=== PATIENT | female | born 1940 | race Caucasian/White ===

== ENCOUNTER 2017-04-21 05:47 | Observation (INO) | payer OTHER ==
[~2017-04-21] VITALS: Ht 167.6 cm; Wt 80.4 kg
[2017-04-21] VITALS (10 sets, daily range): BP systolic 140–165; BP diastolic 63–82; PULSE 53–69; RESP 18–20; TEMP 96.9–98.6; O2SAT 94–100
[~2017-04-21 05:47] MED LIST: LORTA5 PO; [UNRECOGNIZED DRUG - REMARK]
[2017-04-21] MEDS ORDERED: CLON0.1T PO (06:15)
[2017-04-21] MEDS ORDERED: AMLO2.5T PO (06:15)
[2017-04-21] MEDS ORDERED: BENA40TA PO (06:15)
--- NOTE | 2017-04-21 06:21 | PD ---
HPI Chief Complaint: Numbness/Tingling Time Seen by Provider: 06:18 Travel History International Travel<30 days: No Contact w/Intl Traveler<30days: No Traveled to known affect area: No History of Present Illness HPI 76-year-old female patient with history of hypertension, presents to the ER today with left-sided numbness and paresthesias that started last night. She denies any chest pains, shortness of breath, or other symptoms. She denies any difficulty walking, talking, headaches, or any other symptoms. Modifying Factors: None Associated Signs & Symptoms: Left-sided numbness and paresthesias Risk Factors: Hypertension PFSH Past Medical History Anxiety: Yes Depression: Yes Diminished Hearing: No Hypertension: Yes Immunizations Current: Yes Menopausal: Yes Past Surgical History Section: Yes (TIMES FOUR) Hysterectomy: Yes Other Surgery: Yes (FACE LIFT, BREAST REDUCTION) Social History Alcohol Use: No Tobacco Use: No Substance Use: No Allergies-Medications (Allergen,Severity, Reaction): Coded Allergies: penicillin G (Unverified Allergy, Severe, RASH, 04/21/17) diatrizoate meglumine (Unverified Allergy, Mild, ITCHING,FLUSH, 04/21/17) gadobenic acid (Unverified Allergy, Mild, ITCHING,FLUSH, 04/21/17) gadodiamide (Unverified Allergy, Mild, ITCHING,FLUSH, 04/21/17) gadoteridol (Unverified Allergy, Mild, ITCHING,FLUSH, 04/21/17) iodixanol (Unverified Allergy, Mild, ITCHING,FLUSH, 04/21/17) iohexol (Unverified Allergy, Mild, ITCHING,FLUSH, 04/21/17) zolpidem (Unverified Adverse Reaction, Mild, 04/21/17) Uncoded Allergies: STATINS (Adverse Reaction, Mild, MUSCLE WEAKNESS, 08/13/08) Reported Meds & Prescriptions Reported Meds & Active Scripts Active Reported Clonidine (Clonidine HCl) 0.1 Mg Tab 0.1 Mg PO TID Amlodipine (Amlodipine Besylate) 2.5 Mg Tab 2.5 Mg PO BID Benazepril (Benazepril HCl) 40 Mg Tab 40 Mg PO BID [for bp] Review of Systems Except as stated in HPI: all other systems reviewed are Neg Physical Exam Narrative GENERAL: Well-developed elderly white female patient currently in mild distress. Awake and oriented 3. SKIN: Focused skin assessment warm/dry. HEAD: Atraumatic. Normocephalic. EYES: Pupils equal and round. No scleral icterus. No injection or drainage. ENT: No nasal bleeding or discharge. Mucous membranes pink and moist. NECK: Trachea midline. No JVD. Supple. CARDIOVASCULAR: Regular rate and rhythm. No murmur appreciated. Pulses are present and equal bilaterally. RESPIRATORY: No accessory muscle use. Clear to auscultation. Breath sounds equal bilaterally. GASTROINTESTINAL: Abdomen soft, non-tender, nondistended. Hepatic and splenic margins not palpable. MUSCULOSKELETAL: No obvious deformities. No clubbing. No cyanosis. No edema. NEUROLOGICAL: Awake and alert. No obvious cranial nerve deficits. Motor grossly within normal limits. Normal speech. No pronator drift. PSYCHIATRIC: Appropriate mood and affect; insight and judgment normal. Data Data Last Documented VS Vital Signs Date Time Temp Pulse Resp B/P (MAP) Pulse Ox O2 Delivery O2 Flow Rate FiO2 04/21/17 06:55 53 18 140/75 (96) 100 Room Air 04/21/17 06:15 98.6 Orders Orders Electrocardiogram (04/21/17 06:18) Prothrombin Time / Inr (Pt) (04/21/17 06:18) Act Partial Throm Time (Ptt) (04/21/17 06:18) Complete Blood Count With Diff (04/21/17 06:18) Comprehensive Metabolic Panel (04/21/17 06:18) Troponin I (04/21/17 06:18) Ct Brain W/O Iv Contrast(Rout) (04/21/17 06:18) Chest, Single Ap (04/21/17 06:18) Ecg Monitoring (04/21/17 06:18) Iv Access Insert/Monitor (04/21/17 06:18) Oximetry (04/21/17 06:18) Sodium Chloride 0.9% Flush (Ns Flush) (04/21/17 06:30) Labs Laboratory Tests Test 04/21/17 06:40 White Blood Count 7.9 TH/MM3 Red Blood Count 4.57 MIL/MM3 Hemoglobin 13.7 GM/DL Hematocrit 40.6 % Mean Corpuscular Volume 88.9 FL Mean Corpuscular Hemoglobin 30.0 PG Mean Corpuscular Hemoglobin Concent 33.8 % Red Cell Distribution Width 12.8 % Platelet Count 221 TH/MM3 Mean Platelet Volume 8.6 FL Neutrophils (%) (Auto) 67.0 % Lymphocytes (%) (Auto) 24.3 % Monocytes (%) (Auto) 6.8 % Eosinophils (%) (Auto) 1.6 % Basophils (%) (Auto) 0.3 % Neutrophils # (Auto) 5.4 TH/MM3 Lymphocytes # (Auto) 1.9 TH/MM3 Monocytes # (Auto) 0.5 TH/MM3 Eosinophils # (Auto) 0.1 TH/MM3 Basophils # (Auto) 0.0 TH/MM3 CBC Comment DIFF FINAL Differential Comment MDM Medical Decision Making Medical Screen Exam Complete: Yes Emergency Medical Condition: Yes Medical Record Reviewed: Yes Interpretation(s) EKG shows NSR, no ST elevation or depression, and no arrhythmias. No significant T-wave inversions. Last [address] 04/21/17617 Signed Impressions: Service Date/Time: Friday, April 21, 2017 06:32 - CONCLUSION: 1. No acute abnormality seen. 2. Mild age-related atrophy. Ryan Carver MD Laboratory Tests Test 04/21/17 06:40 Differential Diagnosis Left sided paresthesias and numbness: CVA versus TIA versus hypertensive urgency versus metabolic issues versus cervical radiculopathy Narrative Course I do not see any signs of significant focal deficits at this time. No pronator drift. CAT scan of the brain was negative. Lab work has been ordered for further evaluation. Physician Communication Physician Communication Case is signed out to Dr. Langford at 7 AM pending workup. Planning to admit for further evaluation. Diagnosis Primary Impression: Left sided numbness Admitting Information Admitting Physician Requests: Admit Tierra Waters MD Apr 21, 2017 06:21
[2017-04-21] MEDS ORDERED: SODIUM CHLORIDE 0.9% FLUSH 10 ML FLUSH IVF PRN (06:30)
--- NOTE | 2017-04-21 06:40 | RADRPT ---
EXAM DATE/TIME: 04/21/2017 06:32 [facility] COMPARISON: No previous studies available for comparison. INDICATIONS : Left arm weakness last night which has since resolved RADIATION DOSE: 57.89 CTDIvol (mGy) MEDICAL HISTORY : Hypertension. SURGICAL HISTORY : Hysterectomy. face kift ENCOUNTER: Initial ACUITY: 1 day PAIN SCALE: 0/10 LOCATION: cranial TECHNIQUE: Multiple contiguous axial images were obtained of the head. Using automated exposure control and adj ustment of the mA and/or kV according to patient size, radiation dose was kept as low as reasonably a chievable to obtain optimal diagnostic quality images. DICOM format image data is available electro nically for review and comparison. FINDINGS: CEREBRUM: The ventricles and cortical sulci are widened. No evidence of midline shift, mass lesion, hemorrhage or acute infarction. No extra-axial fluid collections are seen. POSTERIOR FOSSA: The cerebellum and brainstem are intact. The 4th ventricle is midline. The cerebellopontine angle i s unremarkable. EXTRACRANIAL: The visualized portion of the orbits is intact. SKULL: The calvaria is intact. No evidence of skull fracture. CONCLUSION: 1. No acute abnormality seen. 2. Mild age-related atrophy. Ryan Carver MD on April 21, 2017 at 6:37 Board Certified Radiologist. This report was verified electronically.
[2017-04-21 06:54] LABS: AUTOMATED NEUTROPHIL # 5.4 TH/MM3 (1.8-7.7); BASOPHIL % 0.3 % (0.0-2.0); EOSINOPHIL # 0.1 TH/MM3 (0-0.4); EOSINOPHIL % 1.6 % (0.0-4.0); HEMATOCRIT 40.6 % (35.0-46.0); HEMOGLOBIN 13.7 GM/DL (11.6-15.3); LYMPH % 24.3 % (9.0-44.0); LYMPHOCYTE # 1.9 TH/MM3 (1.0-4.8); MEAN CELL VOLUME 88.9 FL (80.0-100.0); MEAN CORPUSCULAR HGB CONC 33.8 % (32.0-36.0); MEAN PLATELET VOLUME 8.6 FL (7.0-11.0); MONO % 6.8 % (0.0-8.0); MONOCYTE # 0.5 TH/MM3 (0-0.9); PLATELET COUNT 221 TH/MM3 (150-450); RED BLOOD COUNT 4.57 MIL/MM3 (4.00-5.30); RED CELL DISTRIBUTION WIDTH 12.8 % (11.6-17.2); WHITE BLOOD COUNT 7.9 TH/MM3 (4.0-11.0)
--- NOTE | 2017-04-21 06:55 | RADRPT ---
EXAM DATE/TIME: 04/21/2017 06:40 [facility] COMPARISON: No previous studies available for comparison. INDICATIONS : Palpitations. MEDICAL HISTORY : Hypertension. SURGICAL HISTORY : Hysterectomy. ENCOUNTER: Initial ACUITY: 1 day PAIN SCORE: 2/10 LOCATION: Bilateral chest FINDINGS: A single view of the chest demonstrates the lungs to be symmetrically aerated without evidence of mas s, infiltrate or effusion. The cardiomediastinal contours are unremarkable. Osseous structures are intact. CONCLUSION: No acute disease. Ryan Carver MD on April 21, 2017 at 6:52 Board Certified Radiologist. This report was verified electronically.
[2017-04-21] MEDS ORDERED: ASPIRIN 325 MG TAB PO ONE (07:00)
--- NOTE | 2017-04-21 07:07 | PD ---
Physical Exam Narrative Received sign out from previous team to follow up with labs, CT brain and admit for TIA work up. 76yo F with PMH of HTN presents to the ED with c/o left sided numbness since yesterday. Said she noticed the decreased sensation in left arm and left leg yesterday. CXR negative. CT brain showed no acute abnormality. Pt given aspirin 325mg PO. Labs reviewed, no leukocytosis. Troponin negative. Denies any history of CVA and TIA. Will admit for observation for TIA work up. Data Data Last Documented VS Vital Signs Date Time Temp Pulse Resp B/P (MAP) Pulse Ox O2 Delivery O2 Flow Rate FiO2 04/21/17 06:55 53 18 140/75 (96) 100 Room Air 04/21/17 06:15 98.6 Orders Orders Electrocardiogram (04/21/17 06:18) Prothrombin Time / Inr (Pt) (04/21/17 06:18) Act Partial Throm Time (Ptt) (04/21/17 06:18) Complete Blood Count With Diff (04/21/17 06:18) Comprehensive Metabolic Panel (04/21/17 06:18) Troponin I (04/21/17 06:18) Ct Brain W/O Iv Contrast(Rout) (04/21/17 06:18) Chest, Single Ap (04/21/17 06:18) Ecg Monitoring (04/21/17 06:18) Iv Access Insert/Monitor (04/21/17 06:18) Oximetry (04/21/17 06:18) Sodium Chloride 0.9% Flush (Ns Flush) (04/21/17 06:30) Aspirin (Aspirin) (04/21/17 07:00) Labs Laboratory Tests Test 04/21/17 06:40 White Blood Count 7.9 TH/MM3 Red Blood Count 4.57 MIL/MM3 Hemoglobin 13.7 GM/DL Hematocrit 40.6 % Mean Corpuscular Volume 88.9 FL Mean Corpuscular Hemoglobin 30.0 PG Mean Corpuscular Hemoglobin Concent 33.8 % Red Cell Distribution Width 12.8 % Platelet Count 221 TH/MM3 Mean Platelet Volume 8.6 FL Neutrophils (%) (Auto) 67.0 % Lymphocytes (%) (Auto) 24.3 % Monocytes (%) (Auto) 6.8 % Eosinophils (%) (Auto) 1.6 % Basophils (%) (Auto) 0.3 % Neutrophils # (Auto) 5.4 TH/MM3 Lymphocytes # (Auto) 1.9 TH/MM3 Monocytes # (Auto) 0.5 TH/MM3 Eosinophils # (Auto) 0.1 TH/MM3 Basophils # (Auto) 0.0 TH/MM3 CBC Comment DIFF FINAL Differential Comment Prothrombin Time 10.0 SEC Prothromb Time International Ratio 1.0 RATIO Activated Partial Thromboplast Time 24.1 SEC Blood Urea Nitrogen 13 MG/DL Creatinine 0.77 MG/DL Random Glucose 146 MG/DL Total Protein 7.4 GM/DL Albumin 3.5 GM/DL Calcium Level 9.2 MG/DL Alkaline Phosphatase 100 U/L Aspartate Amino Transf (AST/SGOT) 12 U/L Alanine Aminotransferase (ALT/SGPT) 21 U/L Total Bilirubin 0.3 MG/DL Sodium Level 140 MEQ/L Potassium Level 4.1 MEQ/L Chloride Level 108 MEQ/L Carbon Dioxide Level 26.3 MEQ/L Anion Gap 6 MEQ/L Estimat Glomerular Filtration Rate 73 ML/MIN Troponin I LESS THAN 0.02 NG/ML MDM Supervised Visit with JEFF: No Diagnosis Primary Impression: Left sided numbness Admitting Information Admitting Physician Requests: Observation Keyla Langford DO Apr 21, 2017 07:07
[2017-04-21 07:09] LABS: CHLORIDE 108 MEQ/L (98-107); SODIUM (NA) 140 MEQ/L (136-145)
[2017-04-21 07:12] LABS: CALCIUM 9.2 MG/DL (8.5-10.1)
[2017-04-21 07:13] LABS: ALBUMIN 3.5 GM/DL (3.4-5.0); BICARBONATE 26.3 MEQ/L (21.0-32.0); BLOOD UREA NITROGEN 13 MG/DL (7-18); GLUCOSE,RANDOM 146 MG/DL (74-106)
[2017-04-21 07:16] LABS: ALT (GPT) 21 U/L (10-53); AST (GOT) 12 U/L (15-37); CREATININE 0.77 MG/DL (0.50-1.00); GLOMERULAR FILTRATION RATE 73 ML/MIN (>89)
[2017-04-21 07:17] LABS: TOTAL BILIRUBIN ADULT 0.3 MG/DL (0.2-1.0); TOTAL PROTEIN 7.4 GM/DL (6.4-8.2)
[2017-04-21 07:18] LABS: ALKALINE PHOSPHATASE 100 U/L (45-117)
[2017-04-21 07:20] LABS: TROPONIN I LESS THAN 0.02 NG/ML (0.02-0.05)
--- NOTE | 2017-04-21 13:26 | HHI.HP ---
HPI Service [facility] Primary Care Physician Bk Farmer MD Admission Diagnosis TIA Diagnoses: (1) Left sided numbness Chief Complaint: Lefty upper and lower extremity weakness/numbness Travel History International Travel<30 Days: No Contact w/Intl Traveler <30 Da: No Traveled to Known Affected Are: No History of Present Illness This is a pleasant 76-year-old female patient with a known medical history of hypertension who presented to the ED with complaints of left upper and lower extremity numbness and weakness. Patient states that around 2 AM this morning she awoke from sleep with complaints of left-sided numbness and weakness, states that her skin feels like it's "crawling". Patient states that this lasted over eight hours and went away on its own. She denies ever having this sensation before. Denies any recent illness including fever, chills, shortness of breath, abdominal pain, nausea, vomiting or diarrhea. Denies any blurry vision or dysphagia or problems with speech. Patient does admit to following with cardiology, Dr. Cummings, Review of Systems Constitutional: DENIES: Fever, Chills Eyes: DENIES: Blurred vision, Diplopia Respiratory: DENIES: Cough Cardiovascular: DENIES: Chest pain Gastrointestinal: DENIES: Abdominal pain, Constipation, Diarrhea, Nausea, Vomiting Neurologic: COMPLAINS OF: Localized weakness (left upper and lower ext weakness ), DENIES: Seizures, Poor Balance Psychiatric: DENIES: Anxiety Except as stated in HPI: all other systems reviewed are Neg Past Family Social History Past Medical History Hypertension Anxiety Depression Past Surgical History 4 Hysterectomy Breast reduction Mini facelift Reported Medications Active Reported Clonidine (Clonidine HCl) 0.1 Mg Tab 0.1 Mg PO TID Amlodipine (Amlodipine Besylate) 2.5 Mg Tab 2.5 Mg PO BID Benazepril (Benazepril HCl) 40 Mg Tab 40 Mg PO BID Allergies: Coded Allergies: penicillin G (Unverified Allergy, Severe, RASH, 04/21/17) diatrizoate meglumine (Unverified Allergy, Mild, ITCHING,FLUSH, 04/21/17) gadobenic acid (Unverified Allergy, Mild, ITCHING,FLUSH, 04/21/17) gadodiamide (Unverified Allergy, Mild, ITCHING,FLUSH, 04/21/17) gadoteridol (Unverified Allergy, Mild, ITCHING,FLUSH, 04/21/17) iodixanol (Unverified Allergy, Mild, ITCHING,FLUSH, 04/21/17) iohexol (Unverified Allergy, Mild, ITCHING,FLUSH, 04/21/17) zolpidem (Unverified Adverse Reaction, Mild, 04/21/17) Uncoded Allergies: STATINS (Adverse Reaction, Mild, MUSCLE WEAKNESS, 08/13/08) Active Ordered Medications Current Medications Medications (Trade) Dose Ordered Sig/Franklin Route Start Time Stop Time Status Last Admin (NS Flush) 2 ml UNSCH PRN IVF 04/21/17 06:30 Family History Paternal medical history significant for ND and brain tumor. Mother has a significant history of ND and diet the age of fifty-eight. Sister has history of cardiac stents 17 Social History Denies any current tobacco use, states she quit smoking fifteen years ago. States she smoked a total of thirty years. Denies any alcohol or illicit drug use. Physical Exam Vital Signs Vital Signs Date Time Temp Pulse Resp B/P (MAP) Pulse Ox O2 Delivery O2 Flow Rate FiO2 04/21/17 11:30 98.1 59 20 141/63 (89) 97 04/21/17 09:25 55 04/21/17 09:00 96.9 59 20 152/74 (100) 99 04/21/17 08:28 50 18 160/82 (108) 100 04/21/17 06:55 53 18 140/75 (96) 100 Room Air 04/21/17 06:22 18 99 Room Air 04/21/17 06:18 58 18 99 Room Air 04/21/17 06:15 98.6 58 18 151/67 (95) 99 Physical Exam GENERAL: Well-nourished, well-developed patient in NAD. SKIN: Warm and dry. No rash. HEAD: Normocephalic. Atraumatic. EYES: Pupils equal and round. No scleral icterus. No injection or drainage. ENT: No nasal bleeding or discharge. Mucous membranes pink and moist. NECK: Supple. Trachea midline. CARDIOVASCULAR: Regular rate and rhythm. S1, S2 noted. No murmur appreciated. RESPIRATORY: No accessory muscle use. Clear to auscultation. Breath sounds equal bilaterally. GASTROINTESTINAL: Abdomen soft, non-tender, nondistended. Normoactive bowel sounds x4. MUSCULOSKELETAL: No obvious deformities. Extremities without clubbing, cyanosis , or edema. NEUROLOGICAL: Awake and alert. No obvious cranial nerve deficits. Motor grossly within normal limits. 4/5 muscle strength in bilateral upper and lower extremities. Normal speech. PSYCHIATRIC: Appropriate mood and affect; insight and judgment normal. Laboratory Laboratory Tests Test 04/21/17 06:40 White Blood Count 7.9 Red Blood Count 4.57 Hemoglobin 13.7 Hematocrit 40.6 Mean Corpuscular Volume 88.9 Mean Corpuscular Hemoglobin 30.0 Mean Corpuscular Hemoglobin Concent 33.8 Red Cell Distribution Width 12.8 Platelet Count 221 Mean Platelet Volume 8.6 Neutrophils (%) (Auto) 67.0 Lymphocytes (%) (Auto) 24.3 Monocytes (%) (Auto) 6.8 Eosinophils (%) (Auto) 1.6 Basophils (%) (Auto) 0.3 Neutrophils # (Auto) 5.4 Lymphocytes # (Auto) 1.9 Monocytes # (Auto) 0.5 Eosinophils # (Auto) 0.1 Basophils # (Auto) 0.0 CBC Comment DIFF FINAL Differential Comment Prothrombin Time 10.0 Prothromb Time International Ratio 1.0 Activated Partial Thromboplast Time 24.1 Blood Urea Nitrogen 13 Creatinine 0.77 Random Glucose 146 Total Protein 7.4 Albumin 3.5 Calcium Level 9.2 Alkaline Phosphatase 100 Aspartate Amino Transf (AST/SGOT) 12 Alanine Aminotransferase (ALT/SGPT) 21 Total Bilirubin 0.3 Sodium Level 140 Potassium Level 4.1 Chloride Level 108 Carbon Dioxide Level 26.3 Anion Gap 6 Estimat Glomerular Filtration Rate 73 Troponin I LESS THAN 0.02 Result Diagram: 04/21/1740 04/21/17639 Imaging Last Impressions Head CT 04/21/17617 Signed Impressions: Service Date/Time: Friday, April 21, 2017 06:32 - CONCLUSION: 1. No acute abnormality seen. 2. Mild age-related atrophy. Ryan Carver MD Chest X-Ray 04/21/17617 Signed Impressions: Service Date/Time: Friday, April 21, 2017 06:40 - CONCLUSION: No acute disease. Ryan Carver MD Septic Shock Reassessment Septic shock perfusion: reassessment completed Caprini VTE Risk Assessment Caprini VTE Risk Assessment: Mod/High Risk (score >= 2) Caprini Risk Assessment Model Point Value = 1 Point Value = 2 Point Value = 3 Point Value = 5 Age 41-60 Minor surgery BMI > 25 kg/m2 Swollen legs Varicose veins or History of unexplained or recurrent spontaneous Oral contraceptives or hormone replacement Sepsis (< 1 month) Serious lung disease, including pneumonia (< 1 month) Abnormal pulmonary function Acute myocardial infarction Congestive heart failure (< 1 month) History of inflammatory bowel disease Medical patient at bed rest Age 61-74 Arthroscopic surgery Major open surgery (> 45 min) Laparoscopic surgery (> 45 min) Malignancy Confined to bed (> 72 hours) Immobilizing plaster cast Central venous access Age >= 75 History of VTE Family history of VTE Factor V Leiden Prothrombin [id number] Lupus anticoagulant Anticardiolipin antibodies Elevated serum homocysteine Heparin-induced thrombocytopenia Other congenital or acquired thrombophilia Stroke (< 1 month) Elective arthroplasty Hip, pelvis, or leg fracture Acute spinal cord injury (< 1 month) Prophylaxis Regimen Total Risk Factor Score Risk Level Prophylaxis Regimen 0-1 Low Early ambulation 2 Moderate Order ONE of the following: *Sequential Compression Device (SCD) *Heparin 5000 units SQ BID 3-4 Higher Order ONE of the following medications: *Heparin 5000 units SQ TID *Enoxaparin/Lovenox 40 mg SQ daily (WT < 150 kg, CrCl > 30 mL/min) *Enoxaparin/Lovenox 30 mg SQ daily (WT < 150 kg, CrCl > 10-29 mL/min) *Enoxaparin/Lovenox 30 mg SQ BID (WT < 150 kg, CrCl > 30 mL/min) AND/OR *Sequential Compression Device (SCD) 5 or more Highest Order ONE of the following medications: *Heparin 5000 units SQ TID (Preferred with Epidurals) *Enoxaparin/Lovenox 40 mg SQ daily (WT < 150 kg, CrCl > 30 mL/min) *Enoxaparin/Lovenox 30 mg SQ daily (WT < 150 kg, CrCl > 10-29 mL/min) *Enoxaparin/Lovenox 30 mg SQ BID (WT < 150 kg, CrCl > 30 mL/min) AND *Sequential Compression Device (SCD) Assessment and Plan Problem List: (1) TIA (transient ischemic attack) ICD Code: G45.9 - Transient cerebral ischemic attack, unspecified Plan: Presence of left upper and lower extremity weakness/numbness. Rule out CVA. Head CT reviewed showing no acute disease. Chest x-ray reviewed showing no acute disease. MRI ordered, follow report. Aspirin was given in ED Check lipid panel Echocardiogram ordered, follow. Carotid ultrasound ordered, pending, follow. Consult placed to neurology, appreciate input and recommendations. Mild hypertension, osteoporosis hypertension. CBC and BMP reviewed, essentially unremarkable. DVT prophylaxis: SCDs. (2) Hypertension ICD Code: I10 - Essential (primary) hypertension Plan: Hypertension, chronic: Monitor BP trends. Hold home medications at this time. DVT Prophylaxis: SCDs. Farheen Kirk Apr 21, 2017 13:26
--- NOTE | 2017-04-21 13:47 | EKG ---
Date Performed: 04/21/2017 Time Performed: 05:59:47 PTAGE: 76 years EKG: SINUS BRADYCARDIA SEPTAL MYOCARDIAL INFARCTION ABNORMAL ECG NO PREVIOUS TRACING DOCTOR: Rich Martins Interpretating Date/Time 04/21/2017 13:43:39
[2017-04-21] MEDS ORDERED: ACETAMINOPHEN 325 MG TAB PO PRN (15:15)
[2017-04-21] MEDS ORDERED: ONDANSETRON HCL 4 MG/2 ML VIAL IVP PRN (15:15)
[2017-04-21] MEDS ORDERED: NALOXONE HCL 0.4 MG/ML AMP IV PUSH PRN (15:15)
[2017-04-21] MEDS ORDERED: SODIUM CHLORIDE 0.9% FLUSH 10 ML FLUSH IV FLUSH PRN (15:15)
[2017-04-21] MEDS ORDERED: BISACODYL 10 MG SUPP RECTAL PRN (15:15)
[2017-04-21] MEDS ORDERED: MAGNESIUM HYDROXIDE SUSP 30 ML CUP PO PRN (15:15)
[2017-04-21] MEDS ORDERED: SENNOSIDES 8.6 MG TAB PO PRN (15:15)
--- NOTE | 2017-04-21 16:40 | ECHRPT ---
Indication: CVA/TIA CONCLUSIONS Normal left ventricular size. Mild concentric left ventricular hypertrophy. The left ventricular systolic function is hyperdynamic with an estimated ejection fraction in the ra nge of 65- 70%. The left atrial size is mildly dilated. The right atrial size is [id number] dilated. No atrial level shunt is demonstrated by color flow Doppler interrogation. [id number] mitral valve regurgitation. Aortic valve sclerosis is present. There is trace tricuspid valve regurgitation. BP: 141 / 63 HR: 59 Rhythm: Sinus MEASUREMENTS (Male / Female) Normal Values Technical Quality:Fair 2D ECHO LV Diastolic Diameter PLAX 4.3 cm 4.2 - 5.9 / 3.9 - 5.3 cm LV Systolic Diameter PLAX 2.9 cm IVS Diastolic Thickness 1.3 cm 0.6 - 1.0 / 0.6 - 0.9 cm LVPW Diastolic Thickness 1.3 cm 0.6 - 1.0 / 0.6 - 0.9 cm LV Relative Wall Thickness 0.6 RV Internal Dim ED PLAX 2.4 cm LVOT Diameter 1.9 cm Aortic Root Diameter 3.1 cm LA Systolic Diameter LX 2.7 cm 3.0 - 4.0 / 2.7 - 3.8 cm M-MODE AV Cusp Separation MM 2.0 cm DOPPLER AV Peak Velocity 156.0 cm/s AV Peak Gradient 9.7 mmHg AV Mean Gradient 6.0 mmHg AV Velocity Time Integral 33.7 cm LVOT Peak Velocity 101.0 cm/s LVOT Peak Gradient 4.1 mmHg LVOT Velocity Time Integral 24.4 cm AV Area Cont Eq vti 2.1 cm AV Area Cont Eq pk 1.8 cm Mitral E Point Velocity 89.3 cm/s Mitral A Point Velocity 72.1 cm/s Mitral E to A Ratio 1.2 LV E' Lateral Velocity 7.2 cm/s Mitral E to LV E' Lateral Ratio 12.4 LV E' Septal Velocity 5.4 cm/s Mitral E to LV E' Septal Ratio 16.7 PV Peak Velocity 52.6 cm/s PV Peak Gradient 1.1 mmHg FINDINGS LEFT VENTRICLE Normal left ventricular size. Mild concentric left ventricular hypertrophy. The left ventricular systolic function is hyperdynamic with an estimated ejection fraction in the ra nge of 65- 70%. RIGHT VENTRICLE Normal right ventricular size and systolic function. LEFT ATRIUM The left atrial size is mildly dilated. RIGHT ATRIUM The right atrial size is [id number] dilated. ATRIAL SEPTUM No atrial level shunt is demonstrated by color flow Doppler interrogation. AORTA The aortic root and proximal ascending aorta are normal in size on limited imaging. MITRAL VALVE [id number] mitral valve regurgitation. AORTIC VALVE Aortic valve sclerosis is present. TRICUSPID VALVE There is trace tricuspid valve regurgitation. PULMONARY VALVE No pulmonary valve regurgitation or stenosis. VESSELS The inferior vena cava is normal in size. PERICARDIUM No pericardial effusion. Thuan Menjivar MD, FACC (Electronically Signed) Final Date:21 April 2017 16:39
[2017-04-21] MEDS: CLOPIDOGREL 75 MG TAB PO SCH (17:17)
[2017-04-21] MEDS: DOCUSATE SODIUM 50 MG/SENNA 8.6 MG TAB PO SCH (20:31)
[2017-04-21] MEDS: SODIUM CHLORIDE 0.9% FLUSH 10 ML FLUSH IV FLUSH SCH (20:32)
--- NOTE | 2017-04-21 21:28 | MB ---
cc: STEVEN ALMARAZ MD DATE OF CONSULTATION 04/21/17 She is a 76-year-old woman seen in neurological consultation in regards to left-sided numbness. The patient was just admitted. She describes that the night before last as well as last night she had some left-sided numbness involving the leg, the arm and the back of her head. She was concerned last night when the symptoms recurred. She still has a little residual numbness on the left anterior leg. 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 She is an active woman, takes a baby aspirin daily and also takes blood pressure medication. No history of TIA, stroke, seizures. NEUROLOGIC EXAM The neurologic exam showed an alert and pleasant woman. Ocular movements and visual claudio full. Mentation is normal. She has good strength throughout and perception to the stimulation was symmetrical, except for some decreased perception to the touch on the left anterior calf. Her reflexes were 1+ including the ankles and plantar responses were flexor. CARDIOLOGY STUDIES The EKG was sinus rhythm. Echocardiogram has been done and is essentially normal. ASSESSMENT TIA versus minor stroke. She was started on aspirin. I am going to add Plavix and I explained to the patient the plan would be to do these for approximately four weeks. Lipid profile is pending as well as MRI brain and carotid ultrasound studies. I may need to do MRA neck, etc. The CBC was normal and chemistry was essentially unremarkable, except for a glucose of 146. Thank you for asking us to assist in her care. Steven Almaraz MD [facility]/ /4:58 PM /9:07 PM
[2017-04-22] VITALS (7 sets, daily range): BP systolic 127–179; BP diastolic 63–94; PULSE 56–74; RESP 16–20; TEMP 96.9–98.8; O2SAT 94–97
[2017-04-22] MEDS: CLOPIDOGREL 75 MG TAB PO SCH (08:34)
[2017-04-22] MEDS: SODIUM CHLORIDE 0.9% FLUSH 10 ML FLUSH IV FLUSH SCH (08:35)
[2017-04-22] MEDS: DOCUSATE SODIUM 50 MG/SENNA 8.6 MG TAB PO SCH (08:35)
[2017-04-22] MEDS ORDERED: ASPIRIN 81 MG CHEW TAB CHEW SCH (09:00)
--- NOTE | 2017-04-22 12:11 | HHI.PR ---
Review/Management Daily Summary 04/22 doing well no deficits mr, echo and carotid us pending asa, plavix Subjective Subjective Comments No acute events reported No headache No chest pain No dyspnea Active Medications Current Medications Medications (Trade) Dose Ordered Sig/[place] Route Start Time Stop Time Status Last Admin (NS Flush) 2 ml UNSCH PRN IV FLUSH 04/21/17 15:15 (NS Flush) 2 ml BID IV FLUSH 04/21/17 21:00 04/22/17 08:35 (Tylenol) 650 mg Q4H PRN PO 04/21/17 15:15 (Zofran Inj) 4 mg Q6H PRN IVP 04/21/17 15:15 (Narcan Inj) 0.4 mg UNSCH PRN IV PUSH 04/21/17 15:15 (Vonnie-Colace) 1 tab BID PO 04/21/17 21:00 04/22/17 08:35 (Milk Of Magnesia Liq) 30 ml Q12H PRN PO 04/21/17 15:15 (Senokot) 17.2 mg Q12H PRN PO 04/21/17 15:15 (Dulcolax Supp) 10 mg DAILY PRN RECTAL 04/21/17 15:15 (Aspirin Chew) 81 mg DAILY CHEW 04/22/17 09:00 04/22/17 08:34 (Plavix) 75 mg DAILY PO 04/21/17 16:26 04/22/17 08:34 Allergies Allergies Coded Allergies penicillin G (Unverified Allergy, Severe, RASH, 04/21/17) diatrizoate meglumine (Unverified Allergy, Mild, ITCHING,FLUSH, 04/21/17) gadobenic acid (Unverified Allergy, Mild, ITCHING,FLUSH, 04/21/17) gadodiamide (Unverified Allergy, Mild, ITCHING,FLUSH, 04/21/17) gadoteridol (Unverified Allergy, Mild, ITCHING,FLUSH, 04/21/17) iodixanol (Unverified Allergy, Mild, ITCHING,FLUSH, 04/21/17) iohexol (Unverified Allergy, Mild, ITCHING,FLUSH, 04/21/17) zolpidem (Unverified Adverse Reaction, Mild, 04/21/17) Uncoded Allergies STATINS ( Adverse Reaction, Mild, MUSCLE WEAKNESS, 08/13/08) Exam I&O / VS Vital Signs Date Time Temp Pulse Resp B/P (MAP) Pulse Ox O2 Delivery O2 Flow Rate FiO2 04/22/17 07:50 97.4 69 20 178/75 (109) 95 171/78 (109) 171/80 (110) 04/22/17 04:29 98.8 62 16 179/77 (111) 96 04/22/17 00:02 98.1 74 18 127/63 (84) 97 04/21/17 20:11 97 21 04/21/17 20:00 98.2 64 18 165/79 (107) 96 04/21/17 20:00 62 04/21/17 15:00 98.0 65 20 150/66 (94) 98 04/21/17 15:00 96.9 69 20 143/71 (95) 94 Objective Radiology Results Last [address] 04/21/17617 Signed Impressions: Service Date/Time: Friday, April 21, 2017 06:32 - CONCLUSION: 1. No acute abnormality seen. 2. Mild age-related atrophy. Ryan Carver MD Chest X-Ray 04/21/17617 Signed Impressions: Service Date/Time: Friday, April 21, 2017 06:40 - CONCLUSION: No acute disease. Ryan Carver MD Micro and Labs Laboratory Tests Test 04/22/17 06:47 Maryellen Pierson MD Apr 22, 2017 12:10
--- NOTE | 2017-04-22 12:24 | RADRPT ---
EXAM DATE/TIME: 04/22/2017 11:34 [facility] COMPARISON: No previous studies available for comparison. INDICATIONS : Transient ischemic attack. MEDICAL HISTORY : Hypertension. Glasses. Weakness. Hearing loss. Arthritis. Diabetes. Depression. Claustrophobia. SURGICAL HISTORY : Hysterectomy. section. Breast reduction. Face lift. ENCOUNTER: Initial ACUITY: 1 day PAIN SCORE: 0/10 LOCATION: Bilateral neck PEAK SYSTOLIC VELOCITIES (cm/sec): ICA/CCA RATIO: Right: 1.3 Left: 0.9 ICA: Right: 113.1 Left: 82.2 CCA: Right: 90.5 Left: 93.5 ECA: Right: 101.6 Left: 116.1 VERTEBRAL: Right: 70.9 antegrade Left: 76.2 antegrade Elevated flow velocities and ICA/CCA ratios have been found to correlate with increased degrees of vessel stenosis, calculated as percentage of diameter relative to a normal segment of distal ICA/CCA FINDINGS: RIGHT CAROTID: No significant stenosis is visualized. The waveforms are within normal limits. LEFT CAROTID: No significant stenosis is visualized. The waveforms are within normal limits. VERTEBRAL ARTERIES: Antegrade flow is seen in both vertebral arteries. MISCELLANEOUS: None. CONCLUSION: There is mild atherosclerosis identified within the region of the carotid bulbs bilaterally. No evide nce of significant stenosis is seen within any vessel. Veronica Rogers MD on April 22, 2017 at 12:20 Board Certified Radiologist. This report was verified electronically.
[2017-04-22 12:50] LABS: CHOLESTEROL/ HDL RATIO 4.37 RATIO; HDL CHOLESTEROL 47.3 MG/DL (40.0-60.0)
--- NOTE | 2017-04-22 12:58 | HHI.PR ---
Subjective Remarks Follow-up tracing ischemic attack 04/22/17-patient seen and examined, reports complete resolution of left-sided weakness and numbness. Vitals stable. Objective Vitals Vital Signs Date Time Temp Pulse Resp B/P (MAP) Pulse Ox O2 Delivery O2 Flow Rate FiO2 04/22/17 11:50 96.9 56 20 149/94 (112) 96 04/22/17 07:50 97.4 69 20 178/75 (109) 95 171/78 (109) 171/80 (110) 04/22/17 04:29 98.8 62 16 179/77 (111) 96 04/22/17 00:02 98.1 74 18 127/63 (84) 97 04/21/17 20:11 97 21 04/21/17 20:00 98.2 64 18 165/79 (107) 96 04/21/17 20:00 62 04/21/17 15:00 98.0 65 20 150/66 (94) 98 04/21/17 15:00 96.9 69 20 143/71 (95) 94 I/O 04/21/17 04/21/17 04/21/17 04/22/17 04/22/17 04/22/17 07:00 15:00 23:00 07:00 15:00 23:00 Intake Total 1302 ml Balance 1302 ml Intake Oral 1302 ml # Voids 7 5 # Bowel Movements 0 0 Result Diagram: 04/21/17 0640 04/21/17 0640 Imaging Last Impressions Carotid Artery Ultrasound 04/22/17 0000 Signed Impressions: Service Date/Time: Saturday, April 22, 2017 11:34 - CONCLUSION: There is mild atherosclerosis identified within the region of the carotid bulbs bilaterally. No evidence of significant stenosis is seen within any vessel. Veronica Rogers MD Head CT 04/21/17617 Signed Impressions: Service Date/Time: Friday, April 21, 2017 06:32 - CONCLUSION: 1. No acute abnormality seen. 2. Mild age-related atrophy. Ryan Carver MD Chest X-Ray 04/21/17617 Signed Impressions: Service Date/Time: Friday, April 21, 2017 06:40 - CONCLUSION: No acute disease. Ryan Carver MD Objective Remarks GENERAL: NAD SKIN: Warm and dry. HEAD: Normocephalic. EYES: No scleral icterus. No injection or drainage. NECK: Supple, trachea midline. No JVD or lymphadenopathy. CARDIOVASCULAR: Regular rate and rhythm without murmurs, gallops, or rubs. RESPIRATORY: Breath sounds equal bilaterally. No accessory muscle use. GASTROINTESTINAL: Abdomen soft, non-tender, nondistended. MUSCULOSKELETAL: No cyanosis, or edema. BACK: Nontender without obvious deformity. No CVA tenderness. A/P Problem List: (1) TIA (transient ischemic attack) ICD Code: G45.9 - Transient cerebral ischemic attack, unspecified (2) Hypertension ICD Code: I10 - Essential (primary) hypertension Assessment and Plan 76-year-old female with Transient ischemic attack Head CT noted without any acute finding Carotid ultrasound without any significant stenosis Continue treatment per protocol pending brain MRI to rule out CVA Continue with aspirin and Plavix per neurology Continue with current permissive hypertension LDL of 132 however patient with known allergy to statin therefore will hold on starting any statin PT to treat and eval 2-D echo pending Hypertension Current permissive hypertension Vasotec when necessary for SBP>180 DVT prophylaxis: B-SCD Waldemar Sanches MD Apr 22, 2017 12:58
[2017-04-22] MEDS ORDERED: ASPI81 CHEW (13:00)
[2017-04-22] MEDS ORDERED: PLAV75TA29 PO (13:00)
--- NOTE | 2017-04-22 14:27 | RADRPT ---
EXAM DATE/TIME: 04/22/2017 13:38 [facility] COMPARISON: No previous studies available for comparison. INDICATIONS : Numbness left arm and leg. MEDICAL HISTORY : Hypertension. SURGICAL HISTORY : section. Breast reduction. Face lift. ENCOUNTER: Initial ACUITY: 2 day PAIN SCORE: 0/10 LOCATION: cranial TECHNIQUE: Multiplanar, multisequence MRI of the brain was performed without contrast. FINDINGS: CEREBRUM: The ventricles are normal for age. No evidence of midline shift, mass lesion, hemorrhage or acute in farction. No extraaxial fluid collections are seen. The pituitary gland and suprasellar cistern are normal in configuration. WHITE MATTER: Symmetric periventricular and subcortical white matter hyperintensities indicating chronic small vess el ischemic change. POSTERIOR FOSSA: The cerebellum and brainstem are intact. The 4th ventricle is midline. The cerebellopontine angle is unremarkable. The cerebellar tonsils are normal in position. DIFFUSION IMAGING: No focal areas of restricted diffusion are seen. No evidence of acute infarction. EXTRACRANIAL: The visualized portions of the orbits and paranasal sinuses are unremarkable. CONCLUSION: Age-related findings and chronic ischemic findings. No acute intracranial findings. Harley Quintanilla MD on April 22, 2017 at 14:20 Board Certified Radiologist. This report was verified electronically.
--- NOTE | 2017-04-22 14:44 | HHI.DCPOC ---
Discharge Care Plan Diagnosis: (1) TIA (transient ischemic attack) (2) Hypertension Goals to Promote Your Health * To prevent worsening of your condition and complications * To maintain your health at the optimal level Directions to Meet Your Goals Take your medications as prescribed Follow your dietary instruction Follow activity as directed Keep your appointments as scheduled Take your immunizations and boosters as scheduled If your symptoms worsen call your PCP, if no PCP go to Urgent Care Center or Emergency Room Smoking is Dangerous to Your Health. Avoid second hand smoke Call the 24-hour hour crisis hotline for domestic abuse at Farheen Kirk Apr 22, 2017 14:44
--- NOTE | 2017-04-22 14:49 | HHI.PR ---
Addendum to Inpatient Note Addendum Reason: Additional Documentation Additional Information Brain MRI negative therefore will discharge the patient Discharge patient to home Condition on discharge: Improved Regular Diet as tolerated Ad Radha activity Rx written:see EMR Follow-up with primary care physician 1 week Neurology Waldemar Yo MD Apr 22, 2017 14:49
== END 2017-04-22 18:08 | disposition home or self-care (01) ==
LOC: PHED 05:47 → PHEDA 07:41 → PH3A 08:46
PROVIDERS: ADMIT Hospitalist; ATTEND Hospitalist
DX: G45.9 Transient cerebral ischemic attack, unspecified (principal); I10 Essential (primary) hypertension; M81.0 Age-related osteoporosis without current pathological fracture; R94.31 Abnormal electrocardiogram [ECG] [EKG]; Z79.82 Long term (current) use of aspirin; Z87.891 Personal history of nicotine dependence; Z88.8 Allergy status to other drugs, medicaments and biological substances; Z90.710 Acquired absence of both cervix and uterus
CPT/HCPCS: 70450; 70551; 71045; 80053; 80061; 84484; 85025; 85610; 85730; 93005; 93306; 93880; 99285; G0378

== ENCOUNTER 2017-06-06 15:10 | Emergency (ER) | payer OTHER ==
[~2017-06-06] VITALS: Ht 162.6 cm; Wt 80.0 kg
[~2017-06-06 15:10] MED LIST changes: +AMLO2.5T PO; +ASPI81 CHEW; +ASPI81TA23 PO; +BENA40TA PO; +CLON0.1T PO; +EZET10 PO; -LORTA5 PO; +PLAV75TA29 PO
[2017-06-06 15:15] VITALS: BP 184/83; PULSE 99; RESP 16; TEMP 98.3; O2SAT 99
--- NOTE | 2017-06-06 16:00 | PD ---
HPI Chief Complaint: Bleeding Time Seen by Provider: 15:27 Travel History International Travel<30 days: No Contact w/Intl Traveler<30days: No Traveled to known affect area: No History of Present Illness HPI 76 YO F presents to the ED for evaluation of bleeding from the right wrist after cardiac catheterization this morning. Patient states she was discharged around 1300. She states that she was feeling a little nauseated and went to the the bathroom to make herself vomit. She states that she forgot about her wrist and "must have bumped it on something" around 1430. She states that she went to the [employer] station and they applied a pressure dressing. On presentation she denies dizziness, CP, palpitations, N/V, weakness. She states that she normally takes aspirin, but stopped 2 days prior to the procedure. PFSH Past Medical History Arthritis: Yes Anxiety: Yes Depression: Yes Cardiac Catheterization: Yes Cardiovascular Problems: Yes Cerebrovascular Accident: Yes Diabetes: Yes Patient Takes Glucophage: No Diminished Hearing: No Hypertension: Yes Neurologic: No Immunizations Current: Yes Influenza Vaccination: Yes Menopausal: Yes Past Surgical History Abdominal Surgery: No Cardiac Surgery: Yes (CARDIAC CATH 06/06/17) Section: Yes (TIMES FOUR) Ear Surgery: No Endocrine Surgery: No Eye Surgery: No Genitourinary Surgery: No Gynecologic Surgery: No Hysterectomy: Yes Oral Surgery: No Thoracic Surgery: No Other Surgery: Yes (FACE LIFT, BREAST REDUCTION) Social History Alcohol Use: No Tobacco Use: No Substance Use: No Allergies-Medications (Allergen,Severity, Reaction): Coded Allergies: penicillin G (Verified Allergy, Severe, RASH, 06/06/17) diatrizoate meglumine (Verified Allergy, Mild, ITCHING,FLUSH, 06/06/17) gadobenic acid (Verified Allergy, Mild, ITCHING,FLUSH, 06/06/17) gadodiamide (Verified Allergy, Mild, ITCHING,FLUSH, 06/06/17) gadoteridol (Verified Allergy, Mild, ITCHING,FLUSH, 06/06/17) iodixanol (Verified Allergy, Mild, ITCHING,FLUSH, 06/06/17) iohexol (Verified Allergy, Mild, ITCHING,FLUSH, 06/06/17) zolpidem (Verified Adverse Reaction, Mild, 06/06/17) Uncoded Allergies: STATINS (Adverse Reaction, Mild, MUSCLE WEAKNESS, 08/13/08) Reported Meds & Prescriptions Reported Meds & Active Scripts Active Reported Aspirin EC (Aspirin) 81 Mg Tabdr 81 Mg PO DAILY Zetia (Ezetimibe) 10 Mg Tab 10 Mg PO DAILY Clonidine (Clonidine HCl) 0.1 Mg Tab 0.1 Mg PO TID Amlodipine (Amlodipine Besylate) 2.5 Mg Tab 2.5 Mg PO BID Benazepril (Benazepril HCl) 40 Mg Tab 40 Mg PO BID Review of Systems Except as stated in HPI: all other systems reviewed are Neg Physical Exam Narrative GENERAL: Well-nourished, well-developed pleasant white female no acute distress. SKIN: Focused skin assessment warm/dry. There are 2 puncture mahan on the right anterior wrist. No active bleeding noted. HEAD: Normocephalic. EYES: No scleral icterus. No injection or drainage. NECK: Supple, trachea midline. No JVD or lymphadenopathy. CARDIOVASCULAR: Regular rate and rhythm without murmurs, gallops, or rubs. RESPIRATORY: Breath sounds clear and equal bilaterally. No accessory muscle use. GASTROINTESTINAL: Abdomen soft, non-tender, nondistended. MUSCULOSKELETAL: No cyanosis, or edema. FOCUSED RIGHT UPPER EXTREMITY EXAM: 2+ radial pulse. Patient retains full, active, painless ROM of the extremity. BACK: Nontender without obvious deformity. No CVA tenderness. Data Data Last Documented VS Vital Signs Date Time Temp Pulse Resp B/P (MAP) Pulse Ox O2 Delivery O2 Flow Rate FiO2 06/06/17 15:15 98.3 99 16 184/83 (116) 99 Orders Orders Ed Discharge Order (06/06/17 16:00) [facility] Medical Decision Making Medical Screen Exam Complete: Yes Emergency Medical Condition: Yes Differential Diagnosis Postprocedural bleeding versus contusion versus abrasion versus other Narrative Course 76 YO F presents to the ED for evaluation of bleeding from the right wrist after cardiac catheterization this morning. She states that she forgot about her wrist and "must have bumped it on something" around 1430. She states that she went to the fire station and they applied a pressure dressing. On presentation she denies dizziness, CP, palpitations, N/V, weakness. She states that she normally takes aspirin, but stopped 2 days prior to the procedure. Vitals reviewed. After removing the pressure dressing and there is no active bleeding. There are 2 punctures in the right radial artery but there is palpable pulses distal to this. Patient regained full, active, painless range of motion of the hand. Dressing was applied. Wrist splint was reapplied. Patient instructed to follow discharge instructions from this morning, follow with Dr. Trevizo. She is agreeable to this care plan. She is stable and discharged home. Diagnosis Primary Impression: Bleeding at insertion site Referrals: Cong Trevizo DO Additional Instructions: Follow instructions provided at discharge earlier today. Protect the affected wrist and insertion site. Return to the ED for worsening symptoms or any urgent or emergent medical condition. Disposition: 01 DISCHARGE HOME Condition: Stable Anabel Murcia Jun 06, 2017 16:00
== END 2017-06-06 16:13 | disposition home or self-care (01) ==
LOC: PHEFT 15:10
DX: I97.610 Postprocedural hemorrhage of a circulatory system organ or structure following a cardiac catheterization (principal); Y84.0 Cardiac catheterization as the cause of abnormal reaction of the patient, or of later complication, without mention of misadventure at the time of the procedure
CPT/HCPCS: 99281